=== PATIENT | female | born 1985 | race African-American/Black ===

== ENCOUNTER 2021-03-24 20:04 | Emergency (ER) | payer BC, OTHER ==
[2021-03-24] MEDS ORDERED: Benzonatate 100 MG CAP ONE (20:32)
[2021-03-24 21:29] LABS: #Eosinphils 0.1 10x3/uL (0.0-0.5); #Monocytes 0.5 10x3/uL (0.0-1.1); %Basophils 0.4 % (0.0-2.0); %Eosinophils 2.2 % (0.0-6.0); %Lymphocytes 57.7 % (18.0-47.0); %Monocytes 18.4 % (0.0-10.0); Hemoglobin 12.2 g/dL (12.0-15.5); Mean Corpuscular HGB CONC 31.1 g/dL (32.0-36.0); Mean Corpuscular Hemoglobin 27.7 pg (27.0-33.0); Mean Corpuscular Volume 89.1 fl (81.6-98.3); Mean Platelet Volume 11.4 fl (7.4-10.4); Platelet Count 189 10x3/uL (150-450); RBC Distribution Width 14.1 % (11.5-14.5); White Blood Cell (WBC) Count 2.7 10x3/uL (3.5-10.5)
[2021-03-24 21:32] LABS: ALT (SGPT) 11 U/L (8-55); AST (SGOT) 16 U/L (5-34); Albumin 3.9 g/dL (3.5-5.0); Alkaline Phosphatase 47 U/L (40-110); Anion Gap 12 mmol/L (10-20); BUN (Urea Nitrogen) 12 mg/dL (7.0-18.7); Bilirubin, Total 0.1 mg/dL (0.2-1.2); Calc. Creatinine Clearance 0 mL/min (70-130); Calcium 8.9 mg/dL (7.8-10.44); Carbon Dioxide 29 mmol/L (22-29); Chloride 100 mmol/L (98-107); Globulin 2.9 g/dL (2.4-3.5); Glucose 117 mg/dL (70-105); Potassium 3.4 mmol/L (3.5-5.1); Protein, Total 6.8 g/dL (6.0-8.3); Sodium 138 mmol/L (136-145)
[2021-03-24 21:38] LABS: MDiff Complete? YES
[2021-03-24 21:39] LABS: Platelet Morphology Comment Appears Adequate; RBC Morphology Normal
[2021-03-24 21:45] LABS: Eosinophils 6 % (0-10); Lymphocytes 59 % (21-51); Monocytes 15 % (0-10); Neutrophil 20 % (42-75)
[2021-03-24 22:10] LABS: BHCG - Serum Negative (NEGATIVE); Pregs Control Background? CLEAR/WHITE (CLR/WHITE); Pregs Control Bar Appear? YES (CONTROL BAR)
== END 2021-03-25 00:07 | disposition home or self-care (01) ==
LOC: CSHERS 20:04
DX: U07.1 COVID-19 (principal); R04.2 Hemoptysis; I10 Essential (primary) hypertension; J45.909 Unspecified asthma, uncomplicated
CPT/HCPCS: 71045; 71275; 80053; 84484; 84703; 85025; 85379; 93005

== ENCOUNTER 2024-01-24 16:27 | Emergency (ER) | payer OTHER ==
[2024-01-24] MEDS ORDERED: Meclizine HCl 25 MG TAB ONE (17:57)
[2024-01-24] MEDS ORDERED: Ondansetron ODT 4 MG TAB ONE (17:57)
[2024-01-24] MEDS ORDERED: Acetaminophen 325 MG TAB ONE (17:58)
== END 2024-01-24 19:25 | disposition home or self-care (01) ==
LOC: CSHERS 16:27
DX: R42 Dizziness and giddiness (principal); I10 Essential (primary) hypertension
CPT/HCPCS: 99283; Q0162

== ENCOUNTER 2024-02-10 14:31 | Outpatient (CLI) | payer OTHER | END 2024-02-10 14:32 | disposition home or self-care (01) | LOC: CSHMAMMO 14:31 | PROVIDERS: ATTEND Obstetrics & Gynecology | DX: Z12.31 Encounter for screening mammogram for malignant neoplasm of breast (principal); N64.89 Other specified disorders of breast; Z80.3 Family history of malignant neoplasm of breast | CPT/HCPCS: 77063; 77067 ==

== ENCOUNTER 2024-03-03 13:31 | Outpatient (CLI) | payer OTHER | END 2024-03-03 13:32 | disposition home or self-care (01) | LOC: CSHMAMMO 13:31 | PROVIDERS: ATTEND Obstetrics & Gynecology | DX: N64.89 Other specified disorders of breast (principal) | CPT/HCPCS: G0279 ==